=== PATIENT | female | born 1990 | race Caucasian/White ===

== ENCOUNTER 2016-08-24 23:10 | Emergency (ER) | payer OTHER ==
[2016-08-24 23:21] VITALS: BMI 48.9
[2016-08-24] MEDS ORDERED: ACETAMINOPHEN 325 MG TABLET (FP) PO ONE (23:37)
[2016-08-24] MEDS ORDERED: MAG HYDROX/AL HYDROX/SIMETH 30 ML UNIT-DOSE CUP PO ONE (23:37)
[2016-08-24] MEDS ORDERED: SODIUM CHLORIDE 1,000 ML IV STA (23:37)
[2016-08-24] MEDS ORDERED: FAMOTIDINE 20 MG/50 ML IVPB 50 ML IVPB ONE ×2 (23:37→23:56)
--- NOTE | 2016-08-24 23:46 | PDOC ---
History of Present Illness - General History Source: Patient, Old Records Exam Limitations: No Limitations - History of Present Illness Initial Comments: 08/24/16 23:47 The patient is a 26 year old female, with a significant past medical history of asthma, migraines, sleep apnea and obesity, who presents to the emergency department with intermittent nonradiating midsternal chest pain for the past couple of months but worsening tonight approximately 45 minutes prior to presentation to the ED. The patient describes the pain as a sharp stabbing pain. The patient states that she was sitting down playing a videogame when her symptoms began tonight. Due to her obesity, the patient felt that she should come to the ED for evaluation. The patient additionally reports intermittent RUQ abdominal pain for the past couple of days. The patient denies a past or family history of cardiac issues. The patient denies palpitations or shortness of breath. The patient denies fever, chills, nausea or vomiting. Allergies: None reported. Past Surgical History: None reported. Social History: Current everyday smoker (a couple cigarettes/day). Denies alcohol or drug use. PCP: Dr. Elda Edwards <Regina Levy - Last Filed: 08/25/16 01:23> - General History Source: Patient, Parent(s) Exam Limitations: No Limitations <Jonny Hernandez - Last Filed: 08/25/16 02:38> - General Chief Complaint: Chest Pain Stated Complaint: CHEST PAIN Time Seen by Provider: 08/24/16 23:21 Past History <Regina Levy - Last Filed: 08/25/16 01:23> - Past Medical History Asthma: Yes - Psycho/Social/Smoking Cessation Hx Anxiety: Yes Suicidal Ideation: No Smoking Status: No Smoking History: Never smoked Have you smoked in the past 12 months: No Number of Cigarettes Smoked Daily: 0 Information on smoking cessation initiated: No Hx Alcohol Use: No Drug/Substance Use Hx: No Substance Use Type: None <Jonny Hernandez - Last Filed: 08/25/16 02:38> - Past Medical History Allergies/Adverse Reactions: Allergies Allergy/AdvReac Type Severity Reaction Status Date / Time No Known Allergies Allergy Verified 08/24/16 23:19 Home Medications: Ambulatory Orders Albuterol Sulfate Inhaler - [Ventolin HFA Inhaler -] 1 - 2 inh PO Q4H 05/20/14 Review of Systems - Review of Systems Able to Perform ROS?: Yes Comments:: 08/24/16 23:47 GENERAL/CONSTITUTIONAL: No fever or chills. No weakness. HEAD, EYES, EARS, NOSE AND THROAT: No change in vision. No ear pain or discharge. No sore throat. CARDIOVASCULAR: +Chest pain. No shortness of breath. RESPIRATORY: No cough, wheezing, or hemoptysis. GASTROINTESTINAL: +RUQ pain. No nausea, vomiting, diarrhea or constipation. GENITOURINARY: No dysuria, frequency, or change in urination. MUSCULOSKELETAL: No joint or muscle swelling or pain. No neck or back pain. SKIN: No rash. NEUROLOGIC: No headache, vertigo, loss of consciousness, or change in strength/ sensation. ENDOCRINE: No increased thirst. No abnormal weight change. HEMATOLOGIC/LYMPHATIC: No anemia, easy bleeding, or history of blood clots. ALLERGIC/IMMUNOLOGIC: No hives or skin allergy. <Regina Levy - Last Filed: 08/25/16 01:23> *Physical Exam - Vital Signs Last Vital Signs Temp Pulse Resp BP Pulse Ox 98.3 F 95 H 20 130/70 95 08/24/16 23:19 08/24/16 23:19 08/24/16 23:19 08/24/16 23:19 08/24/16 23:19 - Physical Exam Comments: 08/24/16 23:47 GENERAL: Obese. Awake, alert, and fully oriented, in no acute distress. HEAD: No signs of trauma. EYES: PERRLA, EOMI, sclera anicteric, conjunctiva clear. ENT: Auricles normal inspection, hearing grossly normal, nares patent, oropharynx clear without exudates. Moist mucosa. NECK: Normal ROM, supple, no lymphadenopathy, JVD, or masses. LUNGS: Breath sounds equal, clear to auscultation bilaterally. No wheezes, and no crackles. HEART: Regular rate and rhythm, normal S1 and S2, no murmurs, rubs or gallops. ABDOMEN: Mild RUQ tenderness. Soft, normoactive bowel sounds. No guarding, no rebound. No masses. EXTREMITIES: Normal range of motion, no edema. No clubbing or cyanosis. No cords, erythema, or tenderness. NEUROLOGICAL: Cranial nerves II through XII intact. Normal speech, normal gait. SKIN: Warm, dry, normal turgor, no rashes or lesions noted. <Regina Levy - Last Filed: 08/25/16 01:23> - Vital Signs Last Vital Signs Temp Pulse Resp BP Pulse Ox 98.3 F 95 H 20 130/70 95 08/24/16 23:19 08/24/16 23:19 08/24/16 23:19 08/24/16 23:19 08/24/16 23:19 <Jonny Hernandez - Last Filed: 08/25/16 02:38> Heart Score/ECG Review - History History: Slightly suspicious - Electrocardiogram EKG: Normal - Age Age: </= 45 - Risk Factors Risk Factors Heart Score: Yes Hx Obesity Based on the list above the patient has:: 1-2 risk factors - Troponin Troponin: </= normal limit - Score Heart Score - Total: 1 #1 ECG reviewed & interpreted by me at: 23:40 08/24/16 23:43 NSR 89, no std/esther, normal axis, normal intervals, T wave flat III, QTC 447 msec <Jonny Hernandez - Last Filed: 08/25/16 02:38> ED Treatment Course - LABORATORY CBC & Chemistry Diagram: 08/25/16 00:58 <Regina Levy - Last Filed: 08/25/16 01:23> - LABORATORY CBC & Chemistry Diagram: 08/25/16 00:23 08/25/16 00:58 - RADIOLOGY Radiology Studies Ordered: Category Date Time Status CHEST X-RAY PORTABLE* [RAD] Stat Radiology 08/24/16 23:37 Ordered ABDOMEN US [US] Stat Ultrasound 08/24/16 23:37 Ordered <Jonny Hernandez - Last Filed: 08/25/16 02:38> Medical Decision Making - Medical Decision Making 08/25/16 01:23 EXAM: US/ ABDOMEN LIMITED - US Reviewed By: Dr. Phillip Cummins IMPRESSION: Mildly enlarged fatty liver. <Regina Levy - Last Filed: 08/25/16 01:23> - Medical Decision Making 08/24/16 23:44 A portion of this note was documented by scribe services under my direction. I have reviewed the details of the note, within reason, and agree with the documentation with the following case summary and management plan written by me. Patient treated in the ED. Nursing notes are reviewed and incorporated into the medical decision-making. Vital signs reviewed. Peripheral IV access obtained by the nurse, laboratory studies are drawn and sent, reviewed and interpreted by myself. Vital Signs Temp Pulse Resp BP Pulse Ox 98.3 F 95 H 20 130/70 95 08/24/16 23:19 08/24/16 23:19 08/24/16 23:19 08/24/16 23:19 08/24/16 23:19 26-year-old female with past medical history of obesity, asthma presents to the emergency department for atypical chest pain. Patient reports several months of intermittent sharp midsternal chest pain that lasts for several minutes. Occasionally worsened with eating. Patient reported that lately, the symptoms have been more persistent. She stated that given that she is "obese, she needs to be checked out." Patient does smoke cigarettes. Patient started report that she was having some upper abdominal pain as well. Denies nausea, vomiting, fevers. According to the mother, there is no family history of sudden cardiac . I have very low suspicion for acute coronary syndrome or cardiac or pulmonary etiology at this time. I suspect that this may potentially be a GI issue including gastritis GERD. However, we'll need to rule out biliary pathology. We' ll obtain labs, trial GERD medications, right upper quadrant ultrasound and reassess. 08/25/16 01:48 Ultrasound reviewed. Mildly enlarged fatty liver. 08/25/16 02:31 CBC, BMP 08/25/16 00:23 08/25/16 00:58 CMP Sodium 141 mmol/L (136-145) 08/25/16 00:58 Potassium 3.6 mmol/L (3.5-5.1) 08/25/16 00:58 Chloride 102 mmol/L (98-107) 08/25/16 00:58 Carbon Dioxide 27 mmol/L (21-32) 08/25/16 00:58 Anion Gap 12 (8-16) 08/25/16 00:58 BUN 12 mg/dL (7-18) 08/25/16 00:58 Creatinine 0.7 mg/dL (0.55-1.02) 08/25/16 00:58 Creat Clearance w eGFR > 60 (>60) 08/25/16 00:58 Random Glucose 76 mg/dL (74-106) 08/25/16 00:58 Calcium 8.6 mg/dL (8.5-10.1) 08/25/16 00:58 Total Bilirubin 0.3 mg/dL (0.2-1.0) 08/25/16 00:58 AST 9 U/L (15-37) L 08/25/16 00:58 ALT 12 U/L (12-78) 08/25/16 00:58 Alkaline Phosphatase 118 U/L (45-117) H 08/25/16 00:58 Creatine Kinase 68 IU/L (26-192) 08/25/16 00:58 Troponin I < 0.02 ng/ml (0.00-0.05) 08/25/16 00:58 Total Protein 7.1 g/dl (6.4-8.2) 08/25/16 00:58 Albumin 3.4 g/dl (3.4-5.0) 08/25/16 00:58 Lipase 101 U/L (73-393) 08/25/16 00:58 Serum , Qual Negative 08/25/16 00:58 Labs reviewed. Again, I suspect that this is likely atypical chest pain. Patient states that she will follow up with her PMD. Mother at bedside who agrees with plan. I discussed the physical exam findings, ancillary test results and final diagnoses with the patient. I answered all of the patient's questions. The patient was satisfied with the care received and felt comfortable with the discharge plan and treatment plan. The patient will call their primary care physician within 24 hours to arrange follow-up and will return to the Emergency Department with any new, persistant or worsening symptoms. <Jonny Hernandez - Last Filed: 08/25/16 02:38> *DC/Admit/Observation/Transfer - Attestations Scribe Attestion: 08/24/16 23:48 Documentation prepared by Regina Levy, acting as certified medical technician for Jonny Hernandez MD. <Regina Levy - Last Filed: 08/25/16 01:23> - Discharge Dispostion Admit: No <Jonny Hernandez - Last Filed: 08/25/16 02:38> Diagnosis at time of Disposition: Atypical chest pain - Discharge Dispostion Disposition: HOME Condition at time of disposition: Stable - Referrals Referrals: Elda Edwards [Primary Care Provider] - - Patient Instructions Printed Discharge Instructions: DI for Atypical Chest Pain Additional Instructions: Please follow up with your doctor. Bring a copy of the results with you. - Post Discharge Activity Work/School Note: Back to Work
[2016-08-24] MEDS ORDERED: MAG HYDROX/AL HYDROX/SIMETH 30 ML UNIT-DOSE CUP ONE (23:56)
[2016-08-24] MEDS ORDERED: ACETAMINOPHEN 325 MG TABLET (FP) ONE (23:56)
[2016-08-25 01:40] LABS: INR 1.1 (0.82-1.09); PROTHROMBIN TIME (PATIENT) 12.1 SEC (9.98-11.88)
[2016-08-25 01:42] LABS: ACTIVATED PTT 35.9 SECONDS (26.9-34.4)
[2016-08-25 01:50] LABS: ALBUMIN 3.4 g/dl (3.4-5.0); ANION GAP 12 (8-16); CALCIUM 8.6 mg/dL (8.5-10.1); CO2 27 mmol/L (21-32); CREATININE 0.7 mg/dL (0.55-1.02); GLUCOSE,RANDOM 76 mg/dL (74-106); SGOT/AST 9 U/L (15-37); SGPT/ALT 12 U/L (12-78)
[2016-08-25 01:54] LABS: ALK PHOS 118 U/L (45-117); BILIRUBIN,TOTAL 0.3 mg/dL (0.2-1.0); TOT PROT 7.1 g/dl (6.4-8.2); TROPONIN I < 0.02 ng/ml (0.00-0.05)
[2016-08-25 02:09] LABS: BASOPHIL 0.5 % (0-2.0); EOSINOPHIL 2.5 % (0-4.5); MCH 27.3 pg (25.7-33.7); MEAN CELL VOLUME 82.6 fl (80-96); MEAN PLT VOLUME 9.1 fl (7.5-11.1); NEUTROPHILS 57.6 % (42.8-82.8); PLATELET COUNT 286 K/MM3 (134-434); RDW 13.5 % (11.6-15.6); WHITE BLOOD COUNT 12.4 K/mm3 (4.0-10.0)
[2016-08-25 03:10] VITALS: BP 128/73; PULSE 83; TEMP 98.6
--- NOTE | 2016-08-25 12:19 | EKG ---
Test Reason : Blood Pressure : / mmHG Vent. Rate : 089 BPM Atrial Rate : 089 BPM P-R Int : 166 ms QRS Dur : 094 ms QT Int : 368 ms P-R-T Axes : 027 042 042 degrees QTc Int : 447 ms NORMAL SINUS RHYTHM NORMAL ECG NO PREVIOUS ECGS AVAILABLE Confirmed by FRANCES BERGMAN MD ([id number]) on 08/25/2016 12:19:39 PM Referred By: Confirmed By:FRANCES BERGMAN MD
== END 2016-08-25 03:10 | disposition home or self-care (01) ==
LOC: JER 23:10
PROC: 3E033GC Introduction of Other Therapeutic Substance into Peripheral Vein, Percutaneous Approach (ICD-10-PCS; principal; 2016-08-24)
DX: R07.89 Other chest pain (principal); J45.909 Unspecified asthma, uncomplicated; G47.39 Other sleep apnea; E66.01 Morbid (severe) obesity due to excess calories; Z68.42 Body mass index [BMI] 45.0-49.9, adult
CPT/HCPCS: 36415; 76705-TC; 80053; 82550; 83690; 84484; 84703; 85025; 85610; 85730; 93005; 93010; 96365; 99284-25

== ENCOUNTER 2018-04-06 09:10 | Emergency (ER) | payer OTHER ==
[2018-04-06 09:14] VITALS: TEMP 98.2; BMI 47.7
--- NOTE | 2018-04-06 09:20 | PDOC ---
History of Present Illness - General Stated Complaint: PAIN, ACUTE Time Seen by Provider: 04/06/18 09:19 History Source: Patient Exam Limitations: No Limitations - History of Present Illness Travel History: No Initial Comments: 04/06/18 09:39 28y F hx of asthma presents with abdominal pain. Pt states she starting having mild pain in the R abdomen 2 days ago that has gradually gotten worse. The pt denies any fever/chills, n/v, cough, sob, hemoptysis. Pt notes she also has had 3-4 episodes of watery stool the past day ( not sure of color as she does not look at it). The pain does not change with food intake or with BMs and seems to be worse with movement/twisting/sitting up and down. no recent trauma/ excercises/heavy lifting. No associated dysuria, frequency, foul smelling urine , vag bleeding or discharge. Not currently sexually active. +implantable contraceptive device, LMP early oct and has irregular periods at baseline. PMD: "Gina" at [facility] Past History - Past Medical History Allergies/Adverse Reactions: Allergies Allergy/AdvReac Type Severity Reaction Status Date / Time No Known Allergies Allergy Verified 04/06/18 09:14 Home Medications: Ambulatory Orders Albuterol Sulfate Inhaler - [Ventolin HFA Inhaler -] 1 - 2 inh PO Q4H 10/13/13 Acetaminophen/Caffeine/Butalb [Fioricet -] 1 tab PO Q6H PRN 04/06/18 Asthma: Yes COPD: No Other medical history: scoliosis, migrains - Suicide/Smoking/Psychosocial Hx Smoking Status: No Smoking History: Current every day smoker Have you smoked in the past 12 months: No Number of Cigarettes Smoked Daily: 4 Information on smoking cessation initiated: No Hx Alcohol Use: No Drug/Substance Use Hx: No Substance Use Type: None Review of Systems - Review of Systems Able to Perform ROS?: Yes Comments:: 04/06/18 09:42 Constitutional - no reported Fever, Chills, HEENT: no reported vision changes, sore throat Respiratory: no reported cough, sob, hemoptysis Cardiac: no reported chest pain, palpitations, light headedness, leg swelling Abd/GI: +abd pain, Diarrhea no reported nausea, vomiting, blood per rectum, melena, : no reported dysuria, frequency, discharge Musculskelatal - no reported back pain, joint swelling skin - no reported bruising, erythema, rash neurological: no reported headache, numbness, focal weakness, tingling, ataxia, hematologic: no reported easy bruising, easy bleeding *Physical Exam - Vital Signs Last Vital Signs Temp Pulse Resp BP Pulse Ox 98.2 F 61 18 117/82 99 04/06/18 09:11 04/06/18 09:11 04/06/18 09:11 04/06/18 09:11 04/06/18 09:11 - Physical Exam Comments: 04/06/18 09:45 GENERAL: The patient is awake, alert, and fully oriented, Nontoxic - in no acute distress. HEAD: Normocephalic, atraumatic. EYES: extraocular movements intact, sclera anicteric, conjunctiva clear. ENT: Normal voice, Moist mucous membranes. NECK: Normal range of motion, supple LUNGS: Breath sounds equal, clear to auscultation bilaterally. No wheezes, no rhonchi, no rales. HEART: Regular rate and rhythm, normal S1 and S2 without murmur, rub or gallop. ABDOMEN: Soft, mild tenderness in the rUQ, No guarding, no rebound. No CVA tenderness EXTREMITIES: Normal range of motion, no edema. NEUROLOGICAL: No facial assymetry, Normal speech, moving all 4 extremities spontaneously and symmetrically PSYCH: Normal mood, normal affect. SKIN: Warm, Dry, normal turgor, no rashes to the abdomen/flank ED Treatment Course - LABORATORY CBC & Chemistry Diagram: 04/06/18 09:40 04/06/18 09:40 Medical Decision Making - Medical Decision Making 04/06/18 09:46 28-year-old female presenting with ru quadrant abdominal pain associated with diarrhea seems worse with movement, coughing, twisting out associated fever, chills, nausea, vomiting. On exam the patient is in no acute distress however she does have some tenderness in the right upper quadrant Differential for the patient's symptoms includes possible gall stones, cholecystitis, muscular pain, early zoster, pancreattitis,enteritis will ck basic labs, ro toradol for pain will obtain RUQ US 04/06/18 12:41 The patient's blood work was reviewed it is notable for white count of 13 to respiratory blood work was unremarkable including her urine. The patient states that she was feeling fine until she is started up again I suspect the nature of her pain may be musculoskeletal. Patient right upper quadrant ultrasound is negative. Discharge patient with supportive care including Tylenol and Motrin will have the patient follow up with the PMD the following for further evaluation. return precautions were discussed I discussed the physical exam findings, ancillary test results and final diagnoses with the patient. I answered all of the patient's questions. The patient was satisfied with the care received and felt comfortable with the discharge plan and treatment plan. The patient will call their primary care physician within 24 hours to arrange follow-up and will return to the Emergency Department with any new, persistent or worsening symptoms. *DC/Admit/Observation/Transfer Diagnosis at time of Disposition: Abdominal pain Qualifiers: Abdominal location: right upper quadrant Qualified Code(s): R10.11 - Right upper quadrant pain - Discharge Dispostion Disposition: HOME Condition at time of disposition: Stable Decision to Admit order: No - Referrals Referrals: Sangeeta Mcdonald MD [Primary Care Provider] - Gina Solis MD [Nurse Practitioner] - - Patient Instructions Printed Discharge Instructions: DI for Abdominal Muscle Strain Additional Instructions: Return to the emergency department immediately with ANY new, persistent or worsening symptoms including worsening abdominal pain, fevers, inability to tolerate oral intake, chest pain, shortness of breath or any other concerns. I suspect the nature of your pain may be muscular in nature take Motrin and Tylenol as needed for your pain. Any heavy lifting and actions that would make this or worsening pain. Stay well hydrated. You MUST call and follow up with your Primary care doctor in 4-5 days for further evaluation. Your emergency department visit is not complete without a followup with your doctor for reevaluation. Please make sure your doctor reviews the results of your emergency evaluation. Print Language: ARMENIAN - Post Discharge Activity
[2018-04-06] MEDS ORDERED: SODIUM CHLORIDE 1,000 ML IV ONE (09:38)
[2018-04-06] MEDS ORDERED: KETOROLAC TROMETHAMINE 30 MG/1 ML VIAL IVPUSH ONE (09:38)
[2018-04-06] MEDS ORDERED: KETOROLAC TROMETHAMINE 30 MG/1 ML VIAL ONE (09:50)
[2018-04-06 09:59] LABS: BASO % 0.6 % (0-2.0); EOS % 2.6 % (0-4.5); HEMATOCRIT 38.2 % (32.4-45.2); HEMOGLOBIN 12.8 GM/dL (10.7-15.3); LYMPH % 20.8 % (8-40); MCH 27.5 pg (25.7-33.7); MCHC 33.4 g/dl (32.0-36.0); MEAN CELL VOLUME 82.3 fl (80-96); MEAN PLT VOLUME 8.2 fl (7.5-11.1); MONO % 5.7 % (3.8-10.2); NEUT % 70.3 % (42.8-82.8); PLATELET COUNT 294 K/MM3 (134-434); RBC 4.64 M/mm3 (3.60-5.2); WHITE BLOOD COUNT 13.2 K/mm3 (4.0-10.0)
[2018-04-06 10:23] LABS: ALBUMIN 3.2 g/dl (3.4-5.0); ALK PHOS 113 U/L (45-117); ANION GAP 10 MMOL/L (8-16); BILIRUBIN,TOTAL 0.3 mg/dL (0.2-1); BLOOD UREA NITROGEN 12 mg/dL (7-18); CALCIUM 8.4 mg/dL (8.5-10.1); CHLORIDE 106 mmol/L (98-107); CO2 23 mmol/L (21-32); CREATININE 0.5 mg/dL (0.55-1.3); GLUCOSE,RANDOM 88 mg/dL (74-106); LIPASE 91 U/L (73-393); POTASSIUM 3.9 mmol/L (3.5-5.1); SGOT/AST 7 U/L (15-37); SGPT/ALT 13 U/L (13-61); SODIUM 139 mmol/L (136-145)
[2018-04-06 11:32] LABS: URINE APPEARANCE CLEAR; URINE BILIRUBIN NEGATIVE (<2.0 mg/dL); URINE COLOR YELLOW; URINE GLUCOSE (UA) NEGATIVE (NEGATIVE); URINE KETONE NEGATIVE (NEGATIVE); URINE LEUK ESTERASE NEGATIVE (NEGATIVE); URINE NITRITE NEGATIVE (NEGATIVE); URINE PROTEIN NEGATIVE (NEGATIVE); URINE UROBILINOGEN NEGATIVE mg/dL (0.2-1.0)
[2018-04-06 11:33] LABS: HCG,QUALITATIVE URINE Negative
[2018-04-06 12:53] VITALS: BP 114/62; PULSE 63
== END 2018-04-06 12:53 | disposition home or self-care (01) ==
LOC: JER 09:10
PROC: 3E0333Z Introduction of Anti-inflammatory into Peripheral Vein, Percutaneous Approach (ICD-10-PCS; principal; 2018-04-06)
DX: R10.11 Right upper quadrant pain (principal); Z87.09 Personal history of other diseases of the respiratory system; Z86.69 Personal history of other diseases of the nervous system and sense organs; Z87.39 Personal history of other diseases of the musculoskeletal system and connective tissue; F17.210 Nicotine dependence, cigarettes, uncomplicated
CPT/HCPCS: 36415; 76705-TC; 80053; 81003; 83690; 84703; 85025; 96374; 99283-25; J7030

== ENCOUNTER 2018-05-19 13:39 | Emergency (ER) | payer OTHER ==
[2018-05-19 13:55] VITALS: TEMP 98; BMI 47.2
--- NOTE | 2018-05-19 14:56 | PDOC ---
History of Present Illness - General Chief Complaint: Pain, Acute Stated Complaint: SIDE PAIN Time Seen by Provider: 05/19/18 14:11 Past History - Past Medical History Allergies/Adverse Reactions: Allergies Allergy/AdvReac Type Severity Reaction Status Date / Time No Known Allergies Allergy Verified 04/06/18 09:14 Home Medications: Ambulatory Orders Albuterol Sulfate Inhaler - [Ventolin HFA Inhaler -] 1 - 2 inh PO Q4H 10/13/13 Acetaminophen/Caffeine/Butalb [Fioricet -] 1 tab PO Q6H PRN 04/06/18 Acetaminophen [Tylenol] 650 mg PO Q4H #30 tablet 05/19/18 Asthma: Yes COPD: No Diabetes: No - Surgical History Cardiac Surgery: No GI Surgery: No Neurologic Surgery: No - Immunization History Immunization Up to Date: No - Suicide/Smoking/Psychosocial Hx Smoking Status: No Smoking History: Current every day smoker Have you smoked in the past 12 months: No Number of Cigarettes Smoked Daily: 4 Information on smoking cessation initiated: No Hx Alcohol Use: No Drug/Substance Use Hx: No Substance Use Type: None *Physical Exam - Vital Signs Last Vital Signs Temp Pulse Resp BP Pulse Ox 98.0 F 89 18 108/52 L 96 05/19/18 13:51 05/19/18 13:51 05/19/18 13:51 05/19/18 13:51 05/19/18 13:51 Moderate Sedation - Procedure Monitoring Vital Signs: Procedure Monitoring Vital Signs Temperature 98.0 F 05/19/18 13:51 Pulse Rate 89 05/19/18 13:51 Respiratory Rate 18 05/19/18 13:51 Blood Pressure 108/52 L 05/19/18 13:51 O2 Sat by Pulse Oximetry (%) 96 05/19/18 13:51 ED Treatment Course - LABORATORY CBC & Chemistry Diagram: 05/19/18 15:20 05/19/18 15:20 *DC/Admit/Observation/Transfer Diagnosis at time of Disposition: Abdominal pain Qualifiers: Abdominal location: upper abdomen, unspecified Qualified Code(s): R10.10 - Upper abdominal pain, unspecified - Discharge Dispostion Disposition: HOME Condition at time of disposition: Stable Decision to Admit order: No - Referrals Referrals: Gina Solis MD [Primary Care Provider] - - Patient Instructions Printed Discharge Instructions: DI for Abdominal Pain-Adult Additional Instructions: You were evaluated for your abdominal pain today Your lab work was normal. Your pain is most likely due to re-starting the metformin Do not take the Metformin You may take Tylenol 650mg every 4 hours as needed for pain Please follow up with your primary care doctor this week Return to the ED for fever, worsening abdominal pain, vomiting, or if you have any changes in your symptoms - Post Discharge Activity
[2018-05-19] MEDS ORDERED: SODIUM CHLORIDE 1,000 ML IV STA (14:58)
[2018-05-19] MEDS ORDERED: ACETAMINOPHEN 1000 MG/100 ML VIAL (NON FORMULARY) IVPB ONE (14:58)
[2018-05-19] MEDS ORDERED: ACETAMINOPHEN INJECTION 100 ML IVPB ONE (15:23)
[2018-05-19 15:29] LABS: BASO % 0.9 % (0-2.0); EOS % 1.8 % (0-4.5); HEMATOCRIT 39.3 % (32.4-45.2); HEMOGLOBIN 12.7 GM/dL (10.7-15.3); LYMPH % 26.3 % (8-40); MCH 26.6 pg (25.7-33.7); MCHC 32.2 g/dl (32.0-36.0); MEAN CELL VOLUME 82.6 fl (80-96); PLATELET COUNT 273 K/MM3 (134-434); RBC 4.76 M/mm3 (3.60-5.2); RDW 14.1 % (11.6-15.6)
[2018-05-19 15:59] LABS: ALBUMIN 3.4 g/dl (3.4-5.0); ALK PHOS 123 U/L (45-117); ANION GAP 6 MMOL/L (8-16); BILIRUBIN,TOTAL 0.3 mg/dL (0.2-1); BLOOD UREA NITROGEN 10 mg/dL (7-18); CALCIUM 8.7 mg/dL (8.5-10.1); CHLORIDE 108 mmol/L (98-107); CO2 26 mmol/L (21-32); CREATININE 0.6 mg/dL (0.55-1.3); GLUCOSE,RANDOM 92 mg/dL (74-106); SGOT/AST 13 U/L (15-37); SGPT/ALT 16 U/L (13-61); SODIUM 140 mmol/L (136-145); TOT PROT 7.1 g/dl (6.4-8.2)
[2018-05-19 17:06] LABS: URINE APPEARANCE CLEAR; URINE BILIRUBIN NEGATIVE (<2.0 mg/dL); URINE COLOR YELLOW; URINE GLUCOSE (UA) NEGATIVE (NEGATIVE); URINE KETONE NEGATIVE (NEGATIVE); URINE LEUK ESTERASE NEGATIVE (NEGATIVE); URINE NITRITE NEGATIVE (NEGATIVE); URINE PROTEIN NEGATIVE (NEGATIVE); URINE UROBILINOGEN NEGATIVE mg/dL (0.2-1.0)
[2018-05-19 17:50] VITALS: BP 126/74; PULSE 80
[2018-05-19 18:36] LABS: HCG,QUALITATIVE URINE Negative
== END 2018-05-19 17:51 | disposition home or self-care (01) ==
LOC: JER 13:39
PROC: 3E033NZ Introduction of Analgesics, Hypnotics, Sedatives into Peripheral Vein, Percutaneous Approach (ICD-10-PCS; principal; 2018-05-19)
DX: R10.10 Upper abdominal pain, unspecified (principal); J45.909 Unspecified asthma, uncomplicated; F17.210 Nicotine dependence, cigarettes, uncomplicated
CPT/HCPCS: 36415; 80053; 81003; 83690; 84702; 84703; 85025; 87086; 99282-25; J0131; J7030

== ENCOUNTER 2019-05-25 20:59 | Emergency (ER) | payer OTHER ==
[2019-05-25] MEDS ORDERED: morphine CARPU-JECT 4 MG/1 ML DISP.SYRIN IVPUSH ONE (21:13)
[2019-05-25] MEDS ORDERED: SODIUM CHLORIDE 1,000 ML IV STA (21:13)
--- NOTE | 2019-05-25 21:13 | PDOC ---
Rapid Medical Evaluation Time Seen by Provider: 05/25/19 21:11 Medical Evaluation: Allergies Allergy/AdvReac Type Severity Reaction Status Date / Time No Known Allergies Allergy Verified 04/06/18 09:14 05/25/19 21:11 CC: left sided abd pain x3 days PE: Left CVAT. Abd SNTND Orders: urine, labs Patient will proceed to ER for further evaluation. Discharge Disposition - Diagnosis Flank pain - Referrals - Patient Instructions - Post Discharge Activity
[2019-05-25] MEDS ORDERED: ONDANSETRON 4 MG/2 ML VIAL IVPUSH ONE (21:14)
[2019-05-25 21:17] VITALS: BP 111/80; PULSE 87; TEMP 98.6; BMI 45.4
[2019-05-25] MEDS ORDERED: ONDANSETRON 4 MG/2 ML VIAL ONE (22:41)
[2019-05-25] MEDS ORDERED: MORPHINE SULFATE 2 MG/ML VIAL ONE (22:43)
--- NOTE | 2019-05-25 22:53 | PDOC ---
History of Present Illness - General Chief Complaint: Pain Stated Complaint: ABD PAIN Time Seen by Provider: 05/25/19 21:11 Past History - Past Medical History Allergies/Adverse Reactions: Allergies Allergy/AdvReac Type Severity Reaction Status Date / Time No Known Allergies Allergy Verified 05/25/19 21:17 Home Medications: Ambulatory Orders Albuterol Sulfate Inhaler - [Ventolin HFA Inhaler -] 1 - 2 inh PO Q4H 10/13/13 Acetaminophen/Caffeine/Butalb [Fioricet -] 1 tab PO Q6H PRN 04/06/18 Acetaminophen [Tylenol] 650 mg PO Q4H #30 tablet 05/19/18 Asthma: Yes COPD: No Diabetes: No - Surgical History Cardiac Surgery: No GI Surgery: No Neurologic Surgery: No - Immunization History Immunization Up to Date: No - Psycho Social/Smoking Cessation Hx Smoking Status: No Smoking History: Current every day smoker Have you smoked in the past 12 months: Yes Number of Cigarettes Smoked Daily: 2 Information on smoking cessation initiated: No Hx Alcohol Use: No Drug/Substance Use Hx: No Substance Use Type: None *Physical Exam - Vital Signs Last Vital Signs Temp Pulse Resp BP Pulse Ox 98.6 F 87 17 111/80 100 05/25/19 21:13 05/25/19 21:13 05/25/19 21:13 05/25/19 21:13 05/25/19 21:13 ED Treatment Course - LABORATORY CBC & Chemistry Diagram: 05/25/19 22:47 05/25/19 22:47 Medical Decision Making - Medical Decision Making 05/25/19 22:52 29F PMH asthma c/o 3 days of worsening left sided flank pain w/o radiation. Constant 2/10 pain worsened by movement and cough. Unable to describe type of pain. Denies PO intolerance, N/V/D. Denies f/c, cough, runny nose, sore throat, muscle/joint soreness. Denies urinary symptoms. Denies cp/sob. LMP 1 week ago; no concern for . NKDA CONSTITUTIONAL: Denies F / C HEENT: Denies sore throat, rhinorrhea RESP: Denies SOB, cough CARD: Denies chest pain GI: Endorses left flank pain. Denies N / V / D, bloody stool, inability to tolerate PO : Denies dysuria, hematuria SKIN: Denies rashes MSK: Denies myalgias GEN: unkempt, NAD. AAOx3 HEENT: NC/AT. No facial asymmetry. Normal voice. Supple neck w/ FROM. CV: S1/S2, RRR, no m/r/g LUNG: CTAB, no wheezes, crackles, rales, rhonchi. GI: +LCVAT. +TTP left flank, mid-axillary, otherwise soft, ndnt, +BS, no guarding, no rebound. No masses. EXTREMITIES: No obvious deformities of all extremities. SKIN: warm, dry, normal turgor. No rash or erythema overlying the left flank PSYCH: normal mood and affect NEURO: Moving all extremities. Ambulates w/ normal gait 29F c/o 3 days of constant nonradiating left flank pain worse w/ cough and movement. Denies urinary sx. +LCVAT, +TTP left flank mid axillary. DDx - MSK, renal stone, pyelo, UTI, ovarian cyst, zoster - CBC, CMP, lipase - UA, UC, Preg - Renal US - pain ctrl - fluids 05/26/19 00:44 labs reviewed; largely unchanged vs prior labs pending US read 05/26/19 01:07 US IOC - The kidneys appear normal without mass, hydronephrosis, or obvious calculi. toradol likely dc home w/ pcp f/u 05/26/19 01:39 DC as above Discharge - Discharge Information Problems reviewed: Yes Clinical Impression/Diagnosis: Flank pain, Muscle strain Condition: Stable Disposition: HOME - Admission No - Follow up/Referral Referrals: Ann-Marie Parra DO [Primary Care Provider] - - Patient Discharge Instructions Patient Printed Discharge Instructions: DI for Abdominal Muscle Strain Additional Instructions: Follow up with your primary care doctor in the next 2 days. Drink plenty of fluids. Take NSAIDS (eg ibuprofen, naproxen, motrin, aleeve, advil) as directed by the label for pain. Take these with food and fluids. Return to the Emergency Department if you experience unresolving pain, worsening symptoms, high fever, inability to eat or drink, or anything that concerns you. - Post Discharge Activity
[2019-05-25 22:59] LABS: BASO % 0.9 % (0-2.0); EOS % 1.5 % (0-4.5); HEMATOCRIT 40.3 % (32.4-45.2); LYMPH % 21.9 % (8-40); MCH 27.4 pg (25.7-33.7); MCHC 32.3 g/dl (32.0-36.0); MEAN CELL VOLUME 84.8 fl (80-96); MEAN PLT VOLUME 8.3 fl (7.5-11.1); MONO % 5.3 % (3.8-10.2); NEUT % 70.4 % (42.8-82.8); PLATELET COUNT 334 K/MM3 (134-434); RBC 4.76 M/mm3 (3.60-5.2); RDW 13.9 % (11.6-15.6)
[2019-05-25 23:07] LABS: URINE APPEARANCE CLOUDY; URINE BILIRUBIN NEGATIVE (NEGATIVE); URINE COLOR YELLOW; URINE GLUCOSE (UA) NEGATIVE (NEGATIVE); URINE KETONE 1+ (NEGATIVE); URINE LEUK ESTERASE NEGATIVE (NEGATIVE); URINE NITRITE NEGATIVE (NEGATIVE); URINE PROTEIN NEGATIVE (NEGATIVE)
[2019-05-25 23:34] LABS: ALBUMIN 3.7 g/dl (3.4-5.0); BILIRUBIN,TOTAL 0.4 mg/dL (0.2-1); BLOOD UREA NITROGEN 10.7 mg/dL (7-18); CALCIUM 9.2 mg/dL (8.5-10.1); CREATININE 0.5 mg/dL (0.55-1.3); POTASSIUM 4.1 mmol/L (3.5-5.1); TOT PROT 7.7 g/dl (6.4-8.2)
[2019-05-26] MEDS ORDERED: KETOROLAC TROMETHAMINE 30 MG/1 ML VIAL IVPUSH ONE (01:04)
[2019-05-26] MEDS ORDERED: KETOROLAC TROMETHAMINE 30 MG/1 ML VIAL ONE (01:24)
--- NOTE | 2019-05-26 01:50 | PDOC ---
Documentation entered by Alfonso Morel SCRIBE, acting as scribe for Elise Martinez MD. Elise Martinez MD: This documentation has been prepared by the Maria Teresa duncan Nirvannie, SCRIBE, under my direction and personally reviewed by me in its entirety. I confirm that the documentation accurately reflects all work, treatment, procedures, and medical decision making performed by me. Attending Attestation - Resident Resident Name: ChristianHomero - ED Attending Attestation I have performed the following: I have examined & evaluated the patient, The case was reviewed & discussed with the resident, I agree w/resident's findings & plan, Exceptions are as noted - HPI HPI: 05/25/19 23:08 The patient is a 29 year old female, with a significant past medical history of asthma, migraines, sleep apnea, and obesity, who presents to the emergency department with 3 days of progressively worsening left flank pain. She describes her pain as a 2/10, worsening with movement and coughing. She denies recent fevers, chills, headache or dizziness. She denies recent nausea, vomiting, diarrhea or constipation. She denies recent dysuria, frequency, urgency or hematuria. She denies recent chest pain or shortness of breath. Allergies: NKDA Primary Care Physician: Dr. Parra - Physicial Exam PE: 05/26/19 01:48 awale alert nad lungs clear bilat heart rrr no mrg abd soft nt nd mild left cva ttp. no rebound no guarding. ex wwp. - Medical Decision Making 05/26/19 01:48 29 yo F here withc/o left flank pain worse with movment and coughing. no urinary complaints. on my exam min lef flank ttp. differential msk strain, uti pyelo, renal clic. plan renal us. labs ua. us normal. labs unremarakbel. ua negative. ucg neg. dc home
== END 2019-05-26 02:10 | disposition home or self-care (01) ==
LOC: JER 20:59
PROC: 3E033GC Introduction of Other Therapeutic Substance into Peripheral Vein, Percutaneous Approach (ICD-10-PCS; principal; 2019-05-25)
PROC: 3E033NZ Introduction of Analgesics, Hypnotics, Sedatives into Peripheral Vein, Percutaneous Approach (ICD-10-PCS; 2019-05-25)
PROC: 3E0333Z Introduction of Anti-inflammatory into Peripheral Vein, Percutaneous Approach (ICD-10-PCS; 2019-05-25)
DX: S39.011A Strain of muscle, fascia and tendon of abdomen, initial encounter (principal); X58.XXXA Exposure to other specified factors, initial encounter; Y93.89 Activity, other specified; Y92.89 Other specified places as the place of occurrence of the external cause; Y99.8 Other external cause status; G47.39 Other sleep apnea; Z87.09 Personal history of other diseases of the respiratory system; Z86.69 Personal history of other diseases of the nervous system and sense organs; E66.9 Obesity, unspecified; Z68.42 Body mass index [BMI] 45.0-49.9, adult; F17.210 Nicotine dependence, cigarettes, uncomplicated
CPT/HCPCS: 36415; 76775-TC; 80053; 81003; 83690; 84703; 85025; 87086; 96374; 96375; 99283-25; J7030

== ENCOUNTER 2020-11-04 16:12 | Emergency (ER) | payer OTHER ==
[2020-11-04 16:29] VITALS: TEMP 98.3; BMI 56.7
[2020-11-04] MEDS ORDERED: ONDANSETRON 4 MG/2 ML VIAL IVPUSH ONE (17:20)
[2020-11-04] MEDS ORDERED: morphine CARPU-JECT 4 MG/1 ML DISP.SYRIN IVPUSH ONE (17:20)
[2020-11-04] MEDS ORDERED: SODIUM CHLORIDE 0.9% 500 ML INFUS.BAG IV ONE (17:20)
[2020-11-04] MEDS ORDERED: ONDANSETRON 4 MG/2 ML VIAL ONE (17:43)
[2020-11-04] MEDS ORDERED: MORPHINE SULFATE 2 MG/ML VIAL ONE (17:47)
[2020-11-04 17:53] LABS: BASO % 0.5 % (0-2.0); EOS % 1.9 % (0-4.5); HEMATOCRIT 39.9 % (32.4-45.2); HEMOGLOBIN 13.4 GM/dL (10.7-15.3); LYMPH % 15.9 % (8-40); MCH 27.8 pg (25.7-33.7); MCHC 33.7 g/dl (32.0-36.0); MEAN CELL VOLUME 82.7 fl (80-96); MEAN PLT VOLUME 7.5 fl (7.5-11.1); NEUT % 76.7 % (42.8-82.8); PLATELET COUNT 370 K/MM3 (134-434); RBC 4.82 M/mm3 (3.60-5.2); RDW 14.1 % (11.6-15.6); WHITE BLOOD COUNT 16.1 K/mm3 (4.0-10.0)
[2020-11-04 18:20] LABS: ALBUMIN 3.5 g/dl (3.4-5.0); BLOOD UREA NITROGEN 13.4 mg/dL (7-18); CALCIUM 9.6 mg/dL (8.5-10.1)
[2020-11-04 18:22] LABS: CREATININE 0.7 mg/dL (0.55-1.3)
[2020-11-04 18:24] LABS: BILIRUBIN,TOTAL 0.3 mg/dL (0.2-1); TOT PROT 7.6 g/dl (6.4-8.2)
[2020-11-04 18:43] LABS: URINE APPEARANCE CLEAR; URINE BILIRUBIN NEGATIVE (NEGATIVE); URINE COLOR YELLOW; URINE GLUCOSE (UA) NEGATIVE (NEGATIVE); URINE KETONE TRACE (NEGATIVE); URINE LEUK ESTERASE NEGATIVE (NEGATIVE); URINE NITRITE NEGATIVE (NEGATIVE); URINE PROTEIN NEGATIVE (NEGATIVE); URINE UROBILINOGEN 0.2 mg/dL (0.2-1.0)
[2020-11-04 18:46] LABS: HCG,QUALITATIVE URINE Negative
[2020-11-04] MEDS ORDERED: CLINDAMYCIN 600MG PREMIX IVPB 600 MG/50 ML BAG IVPB ONE ×2 (20:27→20:38)
[2020-11-04] MEDS ORDERED: KETOROLAC TROMETHAMINE 30 MG/1 ML VIAL IVPUSH ONE (20:36)
[2020-11-04] MEDS ORDERED: HYDROmorphone HCL CARPU-JECT 2 MG/1 ML DISP.SYRIN IVPB ONE (20:36)
[2020-11-04] MEDS ORDERED: KETOROLAC TROMETHAMINE 30 MG/1 ML VIAL ONE (20:38)
[2020-11-04 20:51] VITALS: BP 141/81; PULSE 84
== END 2020-11-04 21:28 | disposition home or self-care (01) ==
LOC: JER 16:12
PROC: 3E03329 Introduction of Other Anti-infective into Peripheral Vein, Percutaneous Approach (ICD-10-PCS; principal; 2020-11-04)
PROC: 3E033NZ Introduction of Analgesics, Hypnotics, Sedatives into Peripheral Vein, Percutaneous Approach (ICD-10-PCS; 2020-11-04)
DX: R10.31 Right lower quadrant pain (principal); L02.211 Cutaneous abscess of abdominal wall; L03.311 Cellulitis of abdominal wall
CPT/HCPCS: 36415; 74177-TC; 80053; 81003; 83605; 84703; 85025; 87086; 99285-25; Q9967

== ENCOUNTER 2020-11-06 10:49 | Emergency (ER) | payer OTHER ==
[2020-11-06 11:01] VITALS: TEMP 98; BMI 49.6
[2020-11-06] MEDS ORDERED: SODIUM CHLORIDE 1,000 ML IV STA (11:32)
[2020-11-06] MEDS ORDERED: KETOROLAC TROMETHAMINE 30 MG/1 ML VIAL IVPUSH ONE (11:32)
[2020-11-06] MEDS ORDERED: KETOROLAC TROMETHAMINE 30 MG/1 ML VIAL ONE (12:19)
[2020-11-06 12:31] LABS: EOS % 3.7 % (0-4.5); HEMATOCRIT 40.3 % (32.4-45.2); HEMOGLOBIN 13.3 GM/dL (10.7-15.3); LYMPH % 22.4 % (8-40); MCH 27.6 pg (25.7-33.7); MEAN CELL VOLUME 83.7 fl (80-96); MEAN PLT VOLUME 7.6 fl (7.5-11.1); MONO % 5.3 % (3.8-10.2); NEUT % 67.6 % (42.8-82.8); PLATELET COUNT 353 K/MM3 (134-434); RBC 4.81 M/mm3 (3.60-5.2); RDW 13.9 % (11.6-15.6); WHITE BLOOD COUNT 12.5 K/mm3 (4.0-10.0)
[2020-11-06 12:34] LABS: PH,URINE 5.5 (5.0-8.0); URINE APPEARANCE CLEAR; URINE BILIRUBIN NEGATIVE (NEGATIVE); URINE COLOR YELLOW; URINE GLUCOSE (UA) NEGATIVE (NEGATIVE); URINE KETONE TRACE (NEGATIVE); URINE LEUK ESTERASE NEGATIVE (NEGATIVE); URINE NITRITE NEGATIVE (NEGATIVE); URINE PROTEIN NEGATIVE (NEGATIVE)
[2020-11-06 12:37] LABS: HCG,QUALITATIVE URINE Negative
[2020-11-06 12:57] LABS: ALBUMIN 3.5 g/dl (3.4-5.0); BLOOD UREA NITROGEN 11.5 mg/dL (7-18); CALCIUM 9.4 mg/dL (8.5-10.1)
[2020-11-06 13:01] LABS: CREATININE 0.5 mg/dL (0.55-1.3)
[2020-11-06 13:02] LABS: BILIRUBIN,TOTAL 0.2 mg/dL (0.2-1); TOT PROT 7.5 g/dl (6.4-8.2)
[2020-11-06 14:43] VITALS: BP 104/66; PULSE 74
== END 2020-11-06 14:40 | disposition home or self-care (01) ==
LOC: JER 10:49
PROC: 3E0333Z Introduction of Anti-inflammatory into Peripheral Vein, Percutaneous Approach (ICD-10-PCS; principal; 2020-11-06)
PROC: 3E0337Z Introduction of Electrolytic and Water Balance Substance into Peripheral Vein, Percutaneous Approach (ICD-10-PCS; 2020-11-06)
DX: R10.9 Unspecified abdominal pain (principal)
CPT/HCPCS: 36415; 76705-TC; 76830-TC; 76856-TC; 80053; 81003; 84703; 85025; 87086; 87491; 87591; 99284-25

== ENCOUNTER 2021-01-24 10:55 | Emergency (ER) | payer OTHER ==
[2021-01-24 11:01] VITALS: BP 142/78; PULSE 97; TEMP 98.2; BMI 70.0
[2021-01-24] MEDS ORDERED: KETOROLAC TROMETHAMINE 60 MG/2 ML VIAL IM ONE (11:26)
[2021-01-24] MEDS ORDERED: KETOROLAC TROMETHAMINE 60 MG/2 ML VIAL ONE (11:27)
== END 2021-01-24 12:01 | disposition home or self-care (01) ==
LOC: JER 10:55
PROC: 3E0233Z Introduction of Anti-inflammatory into Muscle, Percutaneous Approach (ICD-10-PCS; principal; 2021-01-24)
DX: N76.4 Abscess of vulva (principal); R10.2 Pelvic and perineal pain
CPT/HCPCS: 99284-25

== ENCOUNTER 2021-12-01 17:59 | Inpatient (IN) | payer OTHER ==
[2021-12-01] MEDS ORDERED: SODIUM CHLORIDE 0.9% 500 ML INFUS.BAG IV ONE (19:50)
[2021-12-01] MEDS ORDERED: KETOROLAC TROMETHAMINE 30 MG/1 ML VIAL IVPUSH ONE (19:50)
[2021-12-01] MEDS ORDERED: KETOROLAC TROMETHAMINE 30 MG/1 ML VIAL ONE (21:21)
[2021-12-01 21:50] LABS: EOS % 2.5 % (0-4.5); HEMATOCRIT 39.9 % (32.4-45.2); HEMOGLOBIN 13.2 GM/dL (10.7-15.3); LYMPH % 19.8 % (8-40); MCH 27.6 pg (25.7-33.7); MCHC 33.2 g/dl (32.0-36.0); MEAN CELL VOLUME 83.2 fl (80-96); MEAN PLT VOLUME 7.8 fl (7.5-11.1); MONO % 4.5 % (3.8-10.2); NEUT % 72.2 % (42.8-82.8); PLATELET COUNT 338 10^3/uL (134-434); RDW 14.5 % (11.6-15.6); WHITE BLOOD COUNT 15.3 K/mm3 (4.0-10.0)
[2021-12-01 22:10] LABS: CALCIUM 9.3 mg/dL (8.5-10.1)
[2021-12-01 22:11] LABS: ALBUMIN 3.3 g/dl (3.4-5.0); BLOOD UREA NITROGEN 10.5 mg/dL (7-18)
[2021-12-01 22:14] LABS: CREATININE 0.6 mg/dL (0.55-1.3)
[2021-12-01 22:15] LABS: BILIRUBIN,TOTAL 0.3 mg/dL (0.2-1); TOT PROT 7.3 g/dl (6.4-8.2)
[2021-12-01 22:35] LABS: URINE APPEARANCE TURBID; URINE BILIRUBIN NEGATIVE (NEGATIVE); URINE COLOR YELLOW; URINE GLUCOSE (UA) NEGATIVE (NEGATIVE); URINE KETONE TRACE (NEGATIVE); URINE LEUK ESTERASE NEGATIVE (NEGATIVE); URINE NITRITE NEGATIVE (NEGATIVE); URINE PROTEIN NEGATIVE (NEGATIVE)
[2021-12-01 22:37] LABS: HCG,QUALITATIVE URINE Negative
[2021-12-02] MEDS ORDERED: ACETAMINOPHEN 1000 MG/100 ML BAG IVPB ONE (02:01)
[2021-12-02] MEDS ORDERED: ACETAMINOPHEN INJECTION 100 ML IVPB ONE (02:22)
[2021-12-02] MEDS ORDERED: CYCLOBENZAPRINE HCL 10 MG TABLET (FP) PO ONE (03:23)
[2021-12-02] MEDS ORDERED: CYCLOBENZAPRINE HCL 5 MG TABLET ONE (04:08)
[2021-12-02 06:27] LABS: BASO % 0.9 % (0-2.0); EOS % 2.8 % (0-4.5); HEMATOCRIT 38.2 % (32.4-45.2); HEMOGLOBIN 12.4 GM/dL (10.7-15.3); LYMPH % 22.6 % (8-40); MCHC 32.5 g/dl (32.0-36.0); MEAN CELL VOLUME 83.2 fl (80-96); MONO % 5.7 % (3.8-10.2); PLATELET COUNT 317 10^3/uL (134-434); RBC 4.59 M/mm3 (3.60-5.2); RDW 14.5 % (11.6-15.6); WHITE BLOOD COUNT 13.6 K/mm3 (4.0-10.0)
[2021-12-02 06:43] LABS: CALCIUM 9.2 mg/dL (8.5-10.1)
[2021-12-02 06:44] LABS: ALBUMIN 3.2 g/dl (3.4-5.0); BLOOD UREA NITROGEN 14.5 mg/dL (7-18); MAGNESIUM 2.1 mg/dL (1.8-2.4)
[2021-12-02 06:46] LABS: CREATININE 0.7 mg/dL (0.55-1.3)
[2021-12-02 06:47] LABS: PHOSPHOROUS 4.3 mg/dL (2.5-4.9)
[2021-12-02 06:48] LABS: BILIRUBIN,TOTAL 0.2 mg/dL (0.2-1)
[2021-12-02 08:56] VITALS: BMI 53.8
[2021-12-02] MEDS ORDERED: ENOXAPARIN NA (PORCINE) 40 MG/0.4 ML DISP.SYRIN SQ SCH (10:00)
[2021-12-02 17:38] LABS: BASO % 0.7 % (0-2.0); EOS % 3.7 % (0-4.5); HEMATOCRIT 37.2 % (32.4-45.2); HEMOGLOBIN 12.6 GM/dL (10.7-15.3); LYMPH % 22.2 % (8-40); MCH 28.3 pg (25.7-33.7); MCHC 33.9 g/dl (32.0-36.0); MEAN CELL VOLUME 83.5 fl (80-96); MEAN PLT VOLUME 8.1 fl (7.5-11.1); MONO % 6.7 % (3.8-10.2); NEUT % 66.7 % (42.8-82.8); PLATELET COUNT 287 10^3/uL (134-434); RBC 4.46 M/mm3 (3.60-5.2); RDW 14.5 % (11.6-15.6); WHITE BLOOD COUNT 10.8 K/mm3 (4.0-10.0)
[2021-12-02 19:29] VITALS: BP 155/71; PULSE 103; TEMP 97.4
== END 2021-12-02 19:25 | disposition home or self-care (01) | DRG 251 ==
LOC: JERFT 17:59 → JER 17:59 → JERBED 23:47 → J5S 12-02 06:39
PROVIDERS: ADMIT Hospitalist; ATTEND Internal Medicine
DX: R10.9 Unspecified abdominal pain (principal); Z68.42 Body mass index [BMI] 45.0-49.9, adult; E66.01 Morbid (severe) obesity due to excess calories; R16.0 Hepatomegaly, not elsewhere classified; R16.1 Splenomegaly, not elsewhere classified; K76.0 Fatty (change of) liver, not elsewhere classified; D72.829 Elevated white blood cell count, unspecified; E78.00 Pure hypercholesterolemia, unspecified; F17.210 Nicotine dependence, cigarettes, uncomplicated; G43.909 Migraine, unspecified, not intractable, without status migrainosus; J45.909 Unspecified asthma, uncomplicated; F41.8 Other specified anxiety disorders
CPT/HCPCS: 36415; 74160-TC; 74176-TC; 80053; 80061; 81003; 83036; 83735; 84100; 84443; 84703; 85025; 93005; 93010; 99285-25; C9803-CS; Q9967; U0003; U0005